=== PATIENT | female | born 1985 | race Hispanic/Latino ===

== ENCOUNTER 2017-05-14 02:24 | Emergency (ER) | payer SELFPAY ==
[~2017-05-14] VITALS: Ht 160 cm; Wt 82.0 kg
[~2017-05-14 02:24] MED LIST: AMOXICILLIN500 MG PO; B-12250 MCG PO; CALCIUM & VITAMIN D3; DEPO-PROVER150 MG/M1 IM; FLONASE SPRAY50 MCG; NAPROSYN500 MG PO; OB COMPLET2; OBTREX DHA PO; PERCOCET 5/325M1 TAB PO; PRENATABS OR; PRENATAL OR; PROAIR HFA IN; TIZANIDINE4 MG PO; TRIAMCINOLON0.0253 EX; VENTOLIN HFA IN; ZITHROMAX250 MG PO; ZOFRAN ODT4 MG PO; [UNRECOGNIZED DRUG - OTHER] EX
[2017-05-14] MEDS ORDERED: ALBUTEROL SUL0.083 % IN (02:33)
--- NOTE | 2017-05-14 03:06 | NUR ---
BREATHING TREATMENT GIVEN FOR SOB. BREATHING TECH. FOR GOOD DEPOSITION TO THE LUNGS.
[2017-05-14 03:34] LABS: INFLUENZA A NONE DETECTED (NONE DETECT); INFLUENZA B NONE DETECTED (NONE DETECT)
[2017-05-14] MEDS ORDERED: FLONASE AL50 MCG/ACT (03:44)
[2017-05-14] MEDS ORDERED: ZPAK PO (03:44)
[2017-05-14 04:04] VITALS: BP 130/73
== END 2017-05-14 04:17 | disposition home or self-care (01) | DRG 153 ==
LOC: ED 02:24
PROVIDERS: Emergency Medicine
DX: J06.9 Acute upper respiratory infection, unspecified (principal); R05 Cough; R09.81 Nasal congestion

== ENCOUNTER 2018-03-21 12:24 | Emergency (ER) | payer SELFPAY ==
[~2018-03-21] VITALS: Ht 160 cm; Wt 86.0 kg
[~2018-03-21 12:24] MED LIST changes: +ALBUTEROL SUL0.083 % IN; +FLONASE AL50 MCG/ACT; +ZPAK PO
[2018-03-21 14:23] VITALS: BP 115/68
== END 2018-03-21 14:23 | disposition home or self-care (01) | DRG 914 ==
LOC: ED 12:24
DX: S89.91XA Unspecified injury of right lower leg, initial encounter (principal); X50.1XXA Overexertion from prolonged static or awkward postures, initial encounter
CPT/HCPCS: L1830

== ENCOUNTER 2018-06-11 03:40 | Emergency (ER) | payer SELFPAY ==
[~2018-06-11] VITALS: Ht 160 cm; Wt 84.5 kg
[2018-06-11] MEDS ORDERED: BIAXIN500 MG PO (03:59)
[2018-06-11 04:01] VITALS: BP 106/66
== END 2018-06-11 04:12 | disposition home or self-care (01) | DRG 153 ==
LOC: ED 03:40
DX: J03.90 Acute tonsillitis, unspecified (principal)

== ENCOUNTER 2018-08-15 20:01 | Emergency (ER) | payer SELFPAY ==
[~2018-08-15] VITALS: Ht 160 cm; Wt 90.0 kg
[~2018-08-15 20:01] MED LIST changes: +BIAXIN500 MG PO
[2018-08-15 20:51] LABS: IMMATURE GRANULOCYTES 0.3 % (0.0-5.0); NEUT# 4.29 thou/uL (2.00-7.15); RED BLOOD COUNT 4.4 mill/uL (4.20-5.60); RED CELL DISTRI WIDTH 12.5 % (11.5-15.5)
[2018-08-15 20:51] LABS: URINE BILIRUBIN - DIPSTICK NEGATIVE (NEGATIVE); URINE BLOOD DIPSTICK NEGATIVE (NEGATIVE); URINE COLOR YELLOW; URINE GLUCOSE - DIPSTICK NEGATIVE (NEGATIVE); URINE KETONE NEGATIVE (NEGATIVE); URINE LEUK ESTERASE NEGATIVE (NEGATIVE); URINE NITRITE - DIPSTICK NEGATIVE (Negative); URINE PH 6.5 (4.5-8.0); URINE PROTEIN - DIPSTICK NEGATIVE (NEG-TRACE); URINE SPECIFIC GRAVITY 1.025; URINE UROBILINOGEN - DIPSTICK 0.2 E.U./dL (0.2)
[2018-08-15 20:58] LABS: HEMOGLOBIN 13.2 g/dl (12.0-16.0); MEAN CELL VOLUME 90.9 fL CALC (80.0-100.0)
[2018-08-15 21:10] LABS: ALKALINE PHOSPHATASE 67 u/l (38-126); AMYLASE 50 u/l (30-110); ANION GAP 12 (6-22 (CALC)); BILIRUBIN, TOTAL 0.3 mg/dL (0.0-1.4); BUN 13 mg/dL (7-17); BUN/CREATININE RATIO 20 (12-20 (CALC)); CARBON DIOXIDE 23 mmol/l (22-30); CHLORIDE 107 mmol/l (95-108); CREATININE 0.7 mg/dL (0.5-1.0); GFR > 60 ML/MIN (>=60 (CALC)); GFR FOR AFR.AMER. > 60 ML/MIN (>=60 (CALC)); LIPASE 130 u/l (23-300); POTASSIUM 3.8 mmol/l (3.5-5.1); SGOT/AST 17 u/l (14-36); SODIUM 139 mmol/l (137-146); TOTAL PROTEIN 6.9 g/dL (6.3-8.2)
[2018-08-15 21:13] LABS: ALBUMIN 4.3 g/dL (3.2-5.0)
[2018-08-15 21:26] LABS: BETA-HCG, QUANT(RESULT NUMBER) 33 mIU/mL
[2018-08-15 22:25] VITALS: BP 126/77
== END 2018-08-15 22:25 | disposition home or self-care (01) | DRG 392 ==
LOC: ED 20:01
PROVIDERS: Emergency Medicine
DX: R10.31 Right lower quadrant pain (principal); R10.32 Left lower quadrant pain

== ENCOUNTER 2018-09-03 12:25 | Emergency (ER) | payer MEDICAID ==
[~2018-09-03] VITALS: Ht 160 cm; Wt 80.0 kg
[2018-09-03] MEDS ORDERED: PRE-NATAL PO (12:45)
[2018-09-03 13:10] LABS: HEMATOCRIT 37.2 % (37.0-47.0); HEMOGLOBIN 12.4 g/dl (12.0-16.0); IMMATURE GRANULOCYTES 0.2 % (0.0-5.0); MEAN CELL VOLUME 89.6 fL CALC (80.0-100.0); MEAN CORPUSCULAR HGB 29.9 pG CALC (26.0-32.0); MEAN CORPUSCULAR HGB CONC 33.3 g/L CALC (32.0-36.0); NEUT# 3.23 thou/uL (2.00-7.15); RED BLOOD COUNT 4.15 mill/uL (4.20-5.60); RED CELL DISTRI WIDTH 12.5 % (11.5-15.5)
[2018-09-03 13:13] LABS: URINE BILIRUBIN - DIPSTICK NEGATIVE (NEGATIVE); URINE BLOOD DIPSTICK NEGATIVE (NEGATIVE); URINE COLOR YELLOW; URINE GLUCOSE - DIPSTICK NEGATIVE (NEGATIVE); URINE KETONE NEGATIVE (NEGATIVE); URINE LEUK ESTERASE NEGATIVE (NEGATIVE); URINE NITRITE - DIPSTICK NEGATIVE (Negative); URINE PH 5.5 (4.5-8.0); URINE PROTEIN - DIPSTICK NEGATIVE (NEG-TRACE); URINE SPECIFIC GRAVITY 1.025; URINE UROBILINOGEN - DIPSTICK 0.2 E.U./dL (0.2)
[2018-09-03 13:27] LABS: ALKALINE PHOSPHATASE 60 u/l (38-126); ANION GAP 14 (6-22 (CALC)); BILIRUBIN, TOTAL 0.4 mg/dL (0.0-1.4); BUN 14 mg/dL (7-17); BUN/CREATININE RATIO 22 (12-20 (CALC)); CARBON DIOXIDE 21 mmol/l (22-30); CHLORIDE 105 mmol/l (95-108); CREATININE 0.6 mg/dL (0.5-1.0); GFR > 60 ML/MIN (>=60 (CALC)); GFR FOR AFR.AMER. > 60 ML/MIN (>=60 (CALC)); LIPASE 79 u/l (23-300); POTASSIUM 3.7 mmol/l (3.5-5.1); SGOT/AST 21 u/l (14-36); SODIUM 136 mmol/l (137-146); TOTAL PROTEIN 6.7 g/dL (6.3-8.2)
[2018-09-03 14:14] LABS: BETA-HCG, QUANT(RESULT NUMBER) 30659 mIU/mL
[2018-09-03 15:49] VITALS: BP 104/65
== END 2018-09-03 15:49 | disposition home or self-care (01) ==
LOC: ED 12:25
PROVIDERS: Family Medicine
DX: O26.891 Other specified pregnancy related conditions, first trimester (principal); R10.30 Lower abdominal pain, unspecified; Y93.89 Activity, other specified; W09.1XXA Fall from playground swing, initial encounter; Z3A.01 Less than 8 weeks gestation of pregnancy

== ENCOUNTER 2019-10-05 14:04 | Emergency (ER) | payer OTHER ==
[~2019-10-05] VITALS: Ht 160 cm; Wt 89.2 kg
[~2019-10-05 14:04] MED LIST changes: +PRE-NATAL PO
[2019-10-05 14:32] VITALS: BP 116/72
[2019-10-05] MEDS ORDERED: PAIN MEDICATION (14:46)
[2019-10-05] MEDS ORDERED: IBUPROFEN600 MG PO (15:34)
== END 2019-10-05 15:35 | disposition home or self-care (01) | DRG 552 ==
LOC: ED 14:04
DX: S16.1XXA Strain of muscle, fascia and tendon at neck level, initial encounter (principal); S09.90XA Unspecified injury of head, initial encounter; J45.909 Unspecified asthma, uncomplicated; V43.52XA Car driver injured in collision with other type car in traffic accident, initial encounter

== ENCOUNTER 2020-01-03 13:06 | Emergency (ER) | payer OTHER ==
[~2020-01-03] VITALS: Ht 160 cm; Wt 89.0 kg
[~2020-01-03 13:06] MED LIST changes: +IBUPROFEN600 MG PO; +PAIN MEDICATION
[2020-01-03] MEDS ORDERED: PROTONIX40 M2 PO (13:49)
[2020-01-03] MEDS ORDERED: HYDROCO/APAP1 T10 PO (13:50)
[2020-01-03 14:01] LABS: HEMOGLOBIN 11.7 g/dl (12.0-16.0); IMMATURE GRANULOCYTES 0.3 % (0.0-5.0); MEAN CELL VOLUME 88.7 fL CALC (80.0-100.0); MEAN CORPUSCULAR HGB 28.8 pG CALC (26.0-32.0); MEAN CORPUSCULAR HGB CONC 32.5 g/dL CAL (32.0-36.0); NEUT# 4.22 thou/uL (2.00-7.15); RED BLOOD COUNT 4.06 mill/uL (4.20-5.60); RED CELL DISTRI WIDTH 12.7 % (11.5-15.5)
[2020-01-03 14:08] LABS: URINE BILIRUBIN - DIPSTICK NEGATIVE (NEGATIVE); URINE BLOOD DIPSTICK NEGATIVE (NEGATIVE); URINE COLOR YELLOW; URINE GLUCOSE - DIPSTICK NEGATIVE (NEGATIVE); URINE KETONE NEGATIVE (NEGATIVE); URINE LEUK ESTERASE NEGATIVE (NEGATIVE); URINE NITRITE - DIPSTICK NEGATIVE (Negative); URINE PH 6.5 (4.5-8.0); URINE PROTEIN - DIPSTICK NEGATIVE (NEG-TRACE); URINE UROBILINOGEN - DIPSTICK 0.2 E.U./dL (0.2)
[2020-01-03 14:26] LABS: ALBUMIN 3.8 g/dL (3.2-5.0); ALKALINE PHOSPHATASE 107 u/l (38-126); AMYLASE 61 u/l (30-110); ANION GAP 12 (6-22 (CALC)); BUN 16 mg/dL (7-17); BUN/CREATININE RATIO 20 (12-20 (CALC)); CARBON DIOXIDE 25 mmol/l (22-30); CHLORIDE 105 mmol/l (95-108); CREATININE 0.8 mg/dL (0.5-1.0); GFR > 60 ML/MIN (>=60 (CALC)); GFR FOR AFR.AMER. > 60 ML/MIN (>=60 (CALC)); LIPASE 168 u/l (23-300); POTASSIUM 3.9 mmol/l (3.5-5.1); SGOT/AST 28 u/l (14-36); SODIUM 138 mmol/l (137-146); TOTAL PROTEIN 6.6 g/dL (6.3-8.2)
[2020-01-03 14:35] LABS: BILIRUBIN, TOTAL 0.2 mg/dL (0.0-1.4)
[2020-01-03 17:10] VITALS: BP 112/70
== END 2020-01-03 17:20 | disposition home or self-care (01) ==
LOC: ED 13:06
PROVIDERS: Emergency Medicine
DX: R10.11 Right upper quadrant pain (principal); J45.909 Unspecified asthma, uncomplicated; Z90.49 Acquired absence of other specified parts of digestive tract
CPT/HCPCS: J1956; Q9967

== ENCOUNTER 2020-06-26 18:01 | Emergency (ER) | payer OTHER ==
[~2020-06-26] VITALS: Ht 160 cm; Wt 88.0 kg
[~2020-06-26 18:01] MED LIST changes: +HYDROCO/APAP1 T10 PO; +PROTONIX40 M2 PO
[2020-06-26 18:16] VITALS: BP 116/63
== END 2020-06-26 19:03 | disposition left against medical advice (07) | DRG 951 ==
LOC: ED 18:01 → LWOBS 19:02
DX: Z53.21 Procedure and treatment not carried out due to patient leaving prior to being seen by health care provider (principal)

== ENCOUNTER 2022-01-16 19:48 | Emergency (ER) | payer OTHER ==
[~2022-01-16] VITALS: Ht 160 cm; Wt 83.0 kg
[2022-01-16 20:02] VITALS: BP 130/88
[2022-01-16 20:13] LABS: URINE BILIRUBIN - DIPSTICK NEGATIVE (NEGATIVE); URINE BLOOD DIPSTICK NEGATIVE (NEGATIVE); URINE COLOR YELLOW; URINE GLUCOSE - DIPSTICK NEGATIVE (NEGATIVE); URINE KETONE NEGATIVE (NEGATIVE); URINE LEUK ESTERASE NEGATIVE (NEGATIVE); URINE NITRITE - DIPSTICK NEGATIVE (Negative); URINE PROTEIN - DIPSTICK NEGATIVE (NEG-TRACE); URINE SPECIFIC GRAVITY <=1.005; URINE UROBILINOGEN - DIPSTICK 0.2 E.U./dL (0.2)
[2022-01-16 20:27] LABS: HEMATOCRIT 37.5 % (37.0-47.0); HEMOGLOBIN 12.6 g/dl (12.0-16.0); IMMATURE GRANULOCYTES 0.1 % (0.0-5.0); MEAN CELL VOLUME 88.7 fL CALC (80.0-100.0); MEAN CORPUSCULAR HGB 29.8 pG CALC (26.0-32.0); MEAN CORPUSCULAR HGB CONC 33.6 g/dL CAL (32.0-36.0); NEUT# 3.27 thou/uL (2.00-7.15); RED BLOOD COUNT 4.23 mill/uL (4.20-5.60); RED CELL DISTRI WIDTH 12.9 % (11.5-15.5)
[2022-01-16 20:46] LABS: ALBUMIN 4.2 g/dL (3.2-5.0); ALKALINE PHOSPHATASE 56 u/l (38-126); ANION GAP 13 (6-22 (CALC)); BILIRUBIN, TOTAL 0.2 mg/dL (0.0-1.4); BUN 10 mg/dL (7-17); BUN/CREATININE RATIO 15 (12-20 (CALC)); CARBON DIOXIDE 26 mmol/l (22-30); CHLORIDE 104 mmol/l (95-108); CREATININE 0.7 mg/dL (0.5-1.0); GFR FOR AFR.AMER. > 60 ML/MIN (>=60 (CALC)); GFR OTHER RACES > 60 ML/MIN (>=60 (CALC)); POTASSIUM 4.1 mmol/l (3.5-5.1); SGOT/AST 24 u/l (14-36); SODIUM 139 mmol/l (137-146)
[2022-01-16] MEDS ORDERED: VOLTAREN75 MG PO (21:00)
[2022-01-16] MEDS ORDERED: MIRALAX17 GM PO (21:00)
[2022-01-16 21:02] VITALS: BP 130/88
== END 2022-01-16 21:11 | disposition home or self-care (01) ==
LOC: ED 19:48
PROVIDERS: Family Medicine
DX: S39.012A Strain of muscle, fascia and tendon of lower back, initial encounter (principal); R35.0 Frequency of micturition; K59.00 Constipation, unspecified; J45.909 Unspecified asthma, uncomplicated; X58.XXXA Exposure to other specified factors, initial encounter

== ENCOUNTER 2022-02-21 22:44 | Emergency (ER) | payer OTHER ==
[~2022-02-21] VITALS: Ht 160 cm; Wt 85.0 kg
[~2022-02-21 22:44] MED LIST changes: +MIRALAX17 GM PO; +VOLTAREN75 MG PO
[2022-02-21 22:53] VITALS: BP 142/88
[2022-02-21 23:01] VITALS: BP 122/80
[2022-02-21 23:32] LABS: URINE BILIRUBIN - DIPSTICK NEGATIVE (NEGATIVE); URINE BLOOD DIPSTICK NEGATIVE (NEGATIVE); URINE COLOR YELLOW; URINE GLUCOSE - DIPSTICK NEGATIVE (NEGATIVE); URINE KETONE NEGATIVE (NEGATIVE); URINE LEUK ESTERASE NEGATIVE (NEGATIVE); URINE PH 5.5 (4.5-8.0); URINE PROTEIN - DIPSTICK NEGATIVE (NEG-TRACE); URINE SPECIFIC GRAVITY >=1.030; URINE UROBILINOGEN - DIPSTICK 0.2 E.U./dL (0.2)
[2022-02-21 23:34] LABS: URINE NITRITE - DIPSTICK NEGATIVE (Negative)
[2022-02-22] MEDS ORDERED: MEDDOSEPAK PO (00:06)
[2022-02-22] MEDS ORDERED: ZPAK PO (00:06)
[2022-02-22] MEDS ORDERED: PAXLOVID PO (00:15)
[2022-02-22 10:34] VITALS: BP 127/85
[2022-02-22 12:00] VITALS: BP 140/83
[2022-02-22 12:22] VITALS: BP 119/84
== END 2022-02-22 00:23 | disposition home or self-care (01) ==
LOC: ED 22:44
PROVIDERS: Emergency Medicine
DX: U07.1 COVID-19 (principal); J45.901 Unspecified asthma with (acute) exacerbation

== ENCOUNTER 2022-03-03 17:02 | Emergency (ER) | payer OTHER ==
[~2022-03-03] VITALS: Ht 160 cm; Wt 84.5 kg
[~2022-03-03 17:02] MED LIST changes: +MEDDOSEPAK PO; +PAXLOVID PO
[2022-03-03] MEDS ORDERED: ALBUTEROL SUL0.083 % IN (17:12)
[2022-03-03 17:15] VITALS: BP 114/81
[2022-03-03 17:30] VITALS: BP 122/71
[2022-03-03 17:45] VITALS: BP 114/71
[2022-03-03] MEDS ORDERED: NAPROXEN500 MG PO (20:09)
[2022-03-03 20:15] VITALS: BP 114/71
== END 2022-03-03 20:00 | disposition home or self-care (01) ==
LOC: ED 17:02
DX: S93.402A Sprain of unspecified ligament of left ankle, initial encounter (principal); S80.02XA Contusion of left knee, initial encounter; S80.01XA Contusion of right knee, initial encounter; S80.211A Abrasion, right knee, initial encounter; J45.909 Unspecified asthma, uncomplicated; W01.0XXA Fall on same level from slipping, tripping and stumbling without subsequent striking against object, initial encounter; Y93.02 Activity, running

== ENCOUNTER 2022-09-04 12:43 | Emergency (ER) | payer OTHER ==
[~2022-09-04] VITALS: Ht 160 cm; Wt 189.0 kg
[2022-09-04] VITALS (9 sets, daily range): BP systolic 95–128; BP diastolic 58–79
[~2022-09-04 12:43] MED LIST changes: +NAPROXEN500 MG PO
== END 2022-09-04 16:33 | disposition home or self-care (01) ==
LOC: ED 12:43
DX: Z03.823 Encounter for observation for suspected inserted (injected) foreign body ruled out (principal); J45.909 Unspecified asthma, uncomplicated

== ENCOUNTER 2024-03-28 07:17 | Emergency (ER) | payer OTHER ==
[~2024-03-28] VITALS: Ht 160 cm; Wt 91.0 kg
[~2024-03-28 07:17] MED LIST changes: +VENTOLIN HFA108 MCG INHW/SPAC; +VOLTAREN - GENE75 MG PO
[2024-03-28] MEDS ORDERED: SODIUM CHLORIDE 0.9% 1,000 ML IV ONE (07:45)
[2024-03-28] MEDS ORDERED: ONDANSETRON HCl 4 MG/2 ML SDV IV ONE (07:45)
[2024-03-28] MEDS ORDERED: ZOFRAN4 MG/TAB PO (07:46)
[2024-03-28] MEDS ORDERED: ANTI-DIARRHE2 M1 PO (07:46)
[2024-03-28 08:07] LABS: BASO% 0.2 % (0-3); EOS% 0.2 % (0-8); HEMATOCRIT 43.5 % (37.0-47.0); HEMOGLOBIN 13.9 g/dl (12.0-16.0); IMMATURE GRANULOCYTES 0.2 % (0.0-5.0); LYMPH% 14.5 % (15-41); MEAN CELL VOLUME 92.4 fL CALC (80.0-100.0); MEAN CORPUSCULAR HGB 29.5 pG CALC (26.0-32.0); MONO% 7.2 % (2-13); NEUT# 5.05 thou/uL (2.00-7.15); NEUT% 77.7 % (42-76); RED BLOOD COUNT 4.71 mill/uL (4.20-5.60); RED CELL DISTRI WIDTH 12.3 % (11.5-15.5)
[2024-03-28 08:08] VITALS: BP 111/75
[2024-03-28 08:09] LABS: URINE GLUCOSE - DIPSTICK Negative (NEGATIVE); URINE KETONE Negative (NEGATIVE); URINE LEUK ESTERASE Negative (NEGATIVE); URINE NITRITE - DIPSTICK Negative (Negative); URINE PROTEIN - DIPSTICK 30 mg/dL (NEG-TRACE); URINE SPECIFIC GRAVITY >=1.030; URINE UROBILINOGEN - DIPSTICK 0.2 E.U./dL (0.2)
[2024-03-28 08:15] VITALS: BP 106/68
[2024-03-28 08:25] LABS: URINE COLOR Yellow
[2024-03-28 08:26] LABS: URINE BLOOD DIPSTICK Negative (NEGATIVE)
[2024-03-28 08:28] LABS: URINE BACTERIA RARE hpf; URINE EPITHELIAL CELLS MODERATE EPI/hpf (0-FEW); URINE RBC 0-2 RBC/hpf (0-5); URINE WBC 0-2 WBC/hpf (0-5)
[2024-03-28 08:30] VITALS: BP 94/54
[2024-03-28 08:34] LABS: ALBUMIN 4.2 g/dL (3.2-5.0); BILIRUBIN, TOTAL 0.8 mg/dL (0.02-1.3); CREATININE 0.9 mg/dL (0.5-1.0); POTASSIUM 3.5 mmol/l (3.5-5.1)
[2024-03-28 08:45] VITALS: BP 95/63
[2024-03-28 09:01] VITALS: BP 94/62
[2024-03-28 09:12] VITALS: BP 94/62
== END 2024-03-28 09:15 | disposition home or self-care (01) ==
LOC: ED 07:17
PROVIDERS: Emergency Medicine
DX: K52.9 Noninfective gastroenteritis and colitis, unspecified (principal); J45.909 Unspecified asthma, uncomplicated
CPT/HCPCS: J2405